=== PATIENT | female | born 1990 | race Caucasian/White ===

== ENCOUNTER 2017-05-06 05:08 | Emergency (ER) | payer BC, MEDICAID, OTHER ==
[~2017-05-06] VITALS: Ht 175.3 cm; Wt 99.0 kg
[2017-05-06] MEDS ORDERED: SODIUM CHLORIDE 0.9% 1,000ML IVBOLUS ONE (06:00)
[2017-05-06] MEDS ORDERED: ONDANSETRON 2MG/ML, 2ML ONE (06:00)
[2017-05-06] MEDS ORDERED: SODIUM CHLORIDE FLUSH 10ML SYR IVF ONE (06:00)
[2017-05-06] MEDS ORDERED: ONDANSETRON 2MG/ML, 2ML IVPush ONE (06:00)
[2017-05-06 06:12] LABS: HEMOGLOBIN 12.7 g/dL (11.7-16.4); WHITE BLOOD COUNT 16.9 x10^3/uL (3.4-10)
[2017-05-06 06:25] LABS: ASPARTATE AMINO TRANSFERASE 13 U/L (15-37); BLOOD UREA NITROGEN 10 mg/dL (7-18)
[2017-05-06 09:55] VITALS: BP 113/79
== END 2017-05-06 10:47 | disposition home or self-care (01) ==
LOC: ED 07:45
DX: O99.512 Diseases of the respiratory system complicating pregnancy, second trimester (principal); O26.892 Other specified pregnancy related conditions, second trimester; J02.9 Acute pharyngitis, unspecified; Z87.891 Personal history of nicotine dependence; Z3A.17 17 weeks gestation of pregnancy
CPT/HCPCS: 36415; 74181; 76805; 76857; 80053; 81003; 84702; 85025; 87081; 87880; 96360; 99285; J7030

== ENCOUNTER 2020-01-07 11:04 | Inpatient (IN) | payer OTHER, MEDICAID ==
[~2020-01-07] VITALS: Ht 175.3 cm; Wt 100.0 kg
[2020-01-07 10:55] VITALS: BP 133/85
[2020-01-07] MEDS ORDERED: LACTATED RINGERS 1,000 ML IV SCH (11:09)
[2020-01-07] MEDS ORDERED: OXYTOCIN 30U/ 0.9% NaCL 500ML 500 ML IV PRN (11:09)
[2020-01-07] MEDS ORDERED: OXYTOCIN 30U/ 0.9% NaCL 500ML 500 ML IV ONE (11:09)
[2020-01-07] MEDS: D5%-LACTATED RINGERS 1,000 ML IV SCH ×2 (11:09→19:09)
[2020-01-07] MEDS ORDERED: ONDANSETRON 2MG/ML, 2ML IVPush PRN (11:30)
[2020-01-07] MEDS ORDERED: TERBUTALINE 1 MG/ML, 1ML IVPush PRN (11:30)
[2020-01-07] MEDS ORDERED: FENTANYL PF 100 MCG/2ML IVPush PRN (11:30)
[2020-01-07] MEDS ORDERED: CALCIUM CARBONATE 500 MG TAB.CHEW PO PRN (11:30)
[2020-01-07] MEDS ORDERED: TERBUTALINE 1 MG/ML, 1ML SQ PRN (11:30)
[2020-01-07] MEDS ORDERED: FENTANYL PF 100 MCG/2ML IV PRN (11:30)
[2020-01-07] MEDS ORDERED: FENTANYL/BUPIV./NS/PF 250 ML EPIDCONT SCH (11:35)
[2020-01-07 11:36] LABS: BASOPHILS # (AUTO) 0.02 x10^3/uL (0-0.1); BASOPHILS % (AUTO) 0 % (0-1); EOSINOPHILS # (AUTO) 0.04 x10^3/uL (0-0.4); EOSINOPHILS % (AUTO) 0 % (1-7); LYMPHOCYTES % (AUTO) 19 % (22-44); MD NO; MEAN CORPUSCULAR HEMOGLOBIN 29.2 pg (27.0-34.8); MEAN CORPUSCULAR HGB CONC 33.3 g/dL (32.4-35.8); MEAN CORPUSCULAR VOLUME 87.6 fL (80-100); MEAN PLATELET VOLUME 10.4 fL (7.4-10.4); MONOCYTES # (AUTO) 0.59 x10^3/uL (0.2-0.8); MONOCYTES % (AUTO) 5 % (2-9); NEUTROPHILS # (AUTO) 9.34 x10^3/uL (1.8-6.8); NEUTROPHILS % (AUTO) 76 % (42-75); PLATELET COUNT 220 x10^3/uL (130-400); RED BLOOD COUNT 4.27 x10^6/uL (3.82-5.3); RED CELL DISTRIBUTION WIDTH 14.3 % (9.6-15.2)
[2020-01-07] MEDS ORDERED: OXYTOCIN 30U/ 0.9% NaCL 500ML 500 ML ONE ×2 (11:38→18:22)
[2020-01-07] MEDS ORDERED: MISOPROSTOL 200 MCG TABLET ONE (11:38)
[2020-01-07] MEDS ORDERED: FENTANYL/BUPIV./NS/PF 250 ML EPIDCONT ONE (11:38)
[2020-01-07] MEDS ORDERED: LIDOCAINE 1%, 20ML ONE (11:38)
[2020-01-07] MEDS ORDERED: NEWBORN KIT ONE (11:39)
[2020-01-07] MEDS ORDERED: LACTATED RINGERS 1,000 ML IVBOLUS PRN (12:00)
[2020-01-07] MEDS ORDERED: EPHEDRINE 50 MG/ML, 1ML IVPush PRN (12:00)
[2020-01-07] MEDS ORDERED: NALOXONE 0.4 MG/ML, 1ML IVPush PRN (12:00)
[2020-01-07] MEDS ORDERED: BUPIVACAINE/PF 0.25% ONE (12:32)
[2020-01-07] MEDS ORDERED: ONDANSETRON 2MG/ML, 2ML ONE (15:15)
[2020-01-07] MEDS ORDERED: ONDANSETRON 2MG/ML, 2ML IV PRN (17:00)
[2020-01-07] MEDS ORDERED: ACETAMINOPHEN 325 MG TABLET PO PRN (17:00)
[2020-01-07] MEDS ORDERED: SIMETHICONE 80 MG CHEW TAB PO PRN (17:00)
[2020-01-07] MEDS ORDERED: MISOPROSTOL 200 MCG TABLET PR PRN (17:00)
[2020-01-07] MEDS: LACTATED RINGERS 1,000 ML IV SCH ×2 (18:24→19:35)
[2020-01-07] MEDS: OXYTOCIN 30U/ 0.9% NaCL 500ML 500 ML IV SCH (18:25)
[2020-01-07] MEDS ORDERED: IBUPROFEN 600 MG TABLET ONE (19:43)
[2020-01-07] MEDS: IBUPROFEN 600 MG TABLET PO PRN (19:46)
[2020-01-07] MEDS ORDERED: OXYcodone/APAP 5/325MG TABLET ONE (19:48)
[2020-01-07] MEDS: OXYcodone/APAP 5/325MG TABLET PO PRN (19:49)
[2020-01-07 20:30] VITALS: BP 126/79
[2020-01-07 23:50] VITALS: BP 128/81
[2020-01-08 02:07] LABS: BASOPHILS # (AUTO) 0.06 x10^3/uL (0-0.1); BASOPHILS % (AUTO) 0 % (0-1); EOSINOPHILS # (AUTO) 0.11 x10^3/uL (0-0.4); EOSINOPHILS % (AUTO) 1 % (1-7); LYMPHOCYTES # (AUTO) 3.25 x10^3/uL (1-3.4); LYMPHOCYTES % (AUTO) 21 % (22-44); MD NO; MEAN CORPUSCULAR HEMOGLOBIN 29.1 pg (27.0-34.8); MEAN CORPUSCULAR HGB CONC 33.2 g/dL (32.4-35.8); MEAN CORPUSCULAR VOLUME 87.6 fL (80-100); MEAN PLATELET VOLUME 10.5 fL (7.4-10.4); MONOCYTES # (AUTO) 1.32 x10^3/uL (0.2-0.8); MONOCYTES % (AUTO) 8 % (2-9); NEUTROPHILS # (AUTO) 11.07 x10^3/uL (1.8-6.8); NEUTROPHILS % (AUTO) 70 % (42-75); PLATELET COUNT 200 x10^3/uL (130-400); RED BLOOD COUNT 3.86 x10^6/uL (3.82-5.3); RED CELL DISTRIBUTION WIDTH 14.3 % (9.6-15.2)
[2020-01-08 02:50] VITALS: BP 121/80
[2020-01-08] MEDS: IBUPROFEN 600 MG TABLET PO PRN ×3 (02:54→19:17)
[2020-01-08] MEDS: OXYTOCIN 30U/ 0.9% NaCL 500ML 500 ML IV SCH ×3 (02:56→22:56)
[2020-01-08] MEDS: D5%-LACTATED RINGERS 1,000 ML IV SCH ×3 (03:09→19:09)
[2020-01-08] MEDS: LACTATED RINGERS 1,000 ML IV SCH ×3 (03:35→19:35)
[2020-01-08 08:00] VITALS: BP 129/83
[2020-01-08] MEDS: DOCUSATE 100 MG CAPSULE PO PRN (09:35)
[2020-01-08] MEDS: PRENATAL VIT/IRON/FA 1 EACH TABLET PO SCH (09:35)
[2020-01-08] MEDS ORDERED: MEASLES,MUMPS&RUBELLA VACC/PF 0.5 ML SQ-VACC ONE ×2 (10:23→10:30)
[2020-01-08 16:00] VITALS: BP 136/83
[2020-01-08 19:47] VITALS: BP 149/86
[2020-01-09] MEDS: OXYcodone/APAP 5/325MG TABLET PO PRN (00:14)
[2020-01-09] MEDS: D5%-LACTATED RINGERS 1,000 ML IV SCH ×2 (03:09→11:09)
[2020-01-09] MEDS: LACTATED RINGERS 1,000 ML IV SCH ×2 (03:35→11:35)
[2020-01-09 08:00] VITALS: BP 122/81
[2020-01-09] MEDS: PRENATAL VIT/IRON/FA 1 EACH TABLET PO SCH (08:06)
[2020-01-09] MEDS: DOCUSATE 100 MG CAPSULE PO PRN (08:06)
[2020-01-09 08:50] LABS: ALANINE AMINOTRANSFERASE 16 U/L (12-78); ALBUMIN 2.6 g/dL (3.4-5.0); ANION GAP 8 mmol/L (5-15); CALCIUM 8.4 mg/dL (8.5-10.1); CHLORIDE 111 mmol/L (98-107)
[2020-01-09 08:53] LABS: ALKALINE PHOSPHATASE 93 U/L (45-117); BILIRUBIN,TOTAL 0.2 mg/dL (0.2-1.0); CREATININE 0.74 mg/dL (0.55-1.02); TOTAL PROTEIN 6.4 g/dL (6.4-8.2)
[2020-01-09] MEDS: OXYTOCIN 30U/ 0.9% NaCL 500ML 500 ML IV SCH (08:56)
[2020-01-09 09:38] LABS: BASOPHILS # (AUTO) 0.05 x10^3/uL (0-0.1); BASOPHILS % (AUTO) 1 % (0-1); EOSINOPHILS # (AUTO) 0.15 x10^3/uL (0-0.4); EOSINOPHILS % (AUTO) 1 % (1-7); LYMPHOCYTES % (AUTO) 23 % (22-44); MD NO; MEAN CORPUSCULAR HEMOGLOBIN 28.6 pg (27.0-34.8); MEAN CORPUSCULAR HGB CONC 31.9 g/dL (32.4-35.8); MEAN CORPUSCULAR VOLUME 89.6 fL (80-100); MEAN PLATELET VOLUME 10.6 fL (7.4-10.4); MONOCYTES # (AUTO) 0.46 x10^3/uL (0.2-0.8); MONOCYTES % (AUTO) 4 % (2-9); NEUTROPHILS # (AUTO) 8.66 x10^3/uL (1.8-6.8); NEUTROPHILS % (AUTO) 72 % (42-75); PLATELET COUNT 221 x10^3/uL (130-400); RED BLOOD COUNT 4.21 x10^6/uL (3.82-5.3); RED CELL DISTRIBUTION WIDTH 14.6 % (9.6-15.2)
[2020-01-09] MEDS: IBUPROFEN 600 MG TABLET PO PRN (10:02)
[2020-01-09] MEDS ORDERED: IBUP-1222 PO (10:11)
== END 2020-01-09 11:15 | disposition home or self-care (01) | DRG 807 ==
LOC: LDIP 11:04 → 2NW 20:06
PROVIDERS: ADMIT Obstetrics & Gynecology; ATTEND Obstetrics & Gynecology
PROC: 10E0XZZ Delivery of Products of Conception, External Approach (ICD-10-PCS; principal; 2020-01-07)
PROC: 0HQ9XZZ Repair Perineum Skin, External Approach (ICD-10-PCS; 2020-01-07)
PROC: 3E0R3BZ Introduction of Anesthetic Agent into Spinal Canal, Percutaneous Approach (ICD-10-PCS; 2020-01-07)
PROC: 00HU33Z Insertion of Infusion Device into Spinal Canal, Percutaneous Approach (ICD-10-PCS; 2020-01-07)
PROC: 3E0234Z Introduction of Serum, Toxoid and Vaccine into Muscle, Percutaneous Approach (ICD-10-PCS; 2020-01-08)
DX: O69.1XX0 Labor and delivery complicated by cord around neck, with compression, not applicable or unspecified (principal); Z37.0 Single live birth; O24.429 Gestational diabetes mellitus in childbirth, unspecified control; O14.94 Unspecified pre-eclampsia, complicating childbirth; O70.0 First degree perineal laceration during delivery; O13.4 Gestational [pregnancy-induced] hypertension without significant proteinuria, complicating childbirth; Z3A.38 38 weeks gestation of pregnancy; Z23 Encounter for immunization
CPT/HCPCS: 36415; 80053; 82570; 82962; 84156; 85025; 86592; 86850; 86900; G0378; J2405; J3490; J2590; J3010; J7120

== ENCOUNTER 2021-05-20 19:31 | Outpatient (CLI) | payer OTHER, MEDICAID ==
[~2021-05-20] VITALS: Ht 175.3 cm; Wt 102.3 kg
[2021-05-20 20:00] VITALS: BP 128/86
== END 2021-05-20 22:18 | disposition home or self-care (01) ==
LOC: LDOP 19:31
PROVIDERS: ATTEND Obstetrics & Gynecology
DX: O62.9 Abnormality of forces of labor, unspecified (principal); O26.892 Other specified pregnancy related conditions, second trimester; R10.9 Unspecified abdominal pain; Z3A.25 25 weeks gestation of pregnancy